=== PATIENT | female | born 1990 | race Two or more races ===

== ENCOUNTER 2019-05-20 21:58 | Emergency (ER) | payer SELFPAY ==
[~2019-05-20] VITALS: Ht 177.8 cm; Wt 116.0 kg
[2019-05-21] MEDS ORDERED: ONDANSETRON 4MG ODT PO STA (01:50)
[2019-05-21] MEDS ORDERED: ACETAMINOPHEN 325MG TABLET PO STA (01:50)
[2019-05-21] MEDS ORDERED: MAGNESIUM/ALUMINUM HYDROXIDE/SIMETHICONE 30ML UDC PO STA (01:50)
[2019-05-21] MEDS ORDERED: FAMOTIDINE 20MG TABLET PO ONE (02:00)
[2019-05-21 02:30] LABS: BASOPHILS % 0.5 % (0.0-2.0); EOSINOPHILS % 0.1 % (0.0-5.0); HEMATOCRIT. 41.9 % (36.0-48.0); HEMOGLOBIN. 14.1 g/dL (12.0-16.0); LYMPHOCYTES % 22.3 % (20.0-50.0); MEAN CORPUSCULAR HEMOGLOBIN 27.8 pg (28.0-32.0); MEAN CORPUSCULAR VOLUME 82.8 fL (81.0-99.0); MEAN PLATELET VOLUME 7.7 fl (7.4-10.4); MONOCYTES % 12.8 % (2.0-8.0); NEUTROPHILS % 64.3 % (40.0-76.0); PLATELET 279 x1000/uL (130-400); RED BLOOD CELL COUNT 5.06 mill/uL (4.2-5.4); RED CELL DISTRIBUTION WIDTH 14.7 % (11.6-14.6)
[2019-05-21 02:37] LABS: CHLORIDE 106 mEq/L (98-107)
[2019-05-21 05:00] VITALS: BP 113/64
== END 2019-05-21 05:53 | disposition home or self-care (01) ==
LOC: ER 22:07
DX: R11.2 Nausea with vomiting, unspecified (principal); F12.10 Cannabis abuse, uncomplicated; R10.9 Unspecified abdominal pain; Z88.1 Allergy status to other antibiotic agents; Z90.89 Acquired absence of other organs
CPT/HCPCS: 36415; 80053; 81025; 83690; 85025; 99284; Q0162; Z7610